=== PATIENT | female | born 2000 | race Caucasian/White ===

== ENCOUNTER 2022-09-08 15:35 | Emergency (ER) | payer BC ==
[~2022-09-08] VITALS: Ht 157.5 cm; Wt 64.0 kg
[2022-09-08 16:04] VITALS: BP 115/87
[2022-09-08 17:11] LABS: BILIRUBIN,URINE NEGATIVE (NEGATIVE); BLOOD, URINE 2+ (NEGATIVE); COLOR,URINE YELLOW (YELLOW); LEUKOCYTE ESTERASE ,URINE 2+ (NEGATIVE); NITRITE, URINE NEGATIVE (NEGATIVE); UGLUCOSE NEGATIVE (NEGATIVE)
[2022-09-08 17:12] LABS: APPEARANCE,URINE HAZY (CLEAR)
[2022-09-08 17:38] LABS: RBC,URINE 11-20 (MOD) /HPF (0-5); WBC,URINE 0-5 /HPF (0-5)
[2022-09-08] MEDS ORDERED: IBUP-2213 PO (18:22)
[2022-09-08] MEDS ORDERED: CEPH-588 PO (18:22)
[2022-09-08] MEDS ORDERED: ONDA-188 PO (18:22)
[2022-09-08] MEDS ORDERED: PYR100 PO (18:22)
--- NOTE | 2022-09-08 18:44 | NUR ---
Patient left without D/C papers.
[2022-09-08 18:45] VITALS: BP 115/87
== END 2022-09-08 18:45 | disposition home or self-care (01) ==
LOC: MED 15:35
DX: N39.0 Urinary tract infection, site not specified (principal); R03.0 Elevated blood-pressure reading, without diagnosis of hypertension; Z79.899 Other long term (current) drug therapy; Z79.1 Long term (current) use of non-steroidal anti-inflammatories (NSAID); Z79.2 Long term (current) use of antibiotics
CPT/HCPCS: 81001; 81025; 87086; 99283

== ENCOUNTER 2023-01-27 09:18 | Emergency (ER) | payer BC ==
[~2023-01-27] VITALS: Ht 157.5 cm; Wt 59.9 kg
[~2023-01-27 09:18] MED LIST: CEPH-588 PO; IBUP-2213 PO; ONDA-188 PO; PYR100 PO
[2023-01-27 09:19] VITALS: BP 101/73; PULSE 78; RESP 16; TEMP 98; O2SAT 99
[2023-01-27] MEDS ORDERED: CEPH-588 PO (09:54)
[2023-01-27] MEDS ORDERED: ACET-10509 PO (09:54)
[2023-01-27] MEDS ORDERED: ACETAMINOPHEN EXTRA STRENGTH 500 MG TAB PO ONE (09:55)
== END 2023-01-27 10:04 | disposition home or self-care (01) ==
LOC: MED 09:18
DX: K08.89 Other specified disorders of teeth and supporting structures (principal)
CPT/HCPCS: 99283

== ENCOUNTER 2023-03-07 20:15 | Emergency (ER) | payer BC ==
[~2023-03-07] VITALS: Ht 157.5 cm; Wt 59.9 kg
[~2023-03-07 20:15] MED LIST changes: +ACET-10509 PO
[2023-03-07 20:31] VITALS: BP 103/71; PULSE 79; RESP 20; TEMP 98; O2SAT 98
[2023-03-07 21:16] LABS: BILIRUBIN,URINE NEGATIVE (NEGATIVE); BLOOD, URINE NEGATIVE (NEGATIVE); LEUKOCYTE ESTERASE ,URINE 2+ (NEGATIVE); NITRITE, URINE POSITIVE (NEGATIVE); PROTEIN,URINE TRACE (NEGATIVE); UGLUCOSE TRACE (NEGATIVE)
[2023-03-07 21:40] LABS: APPEARANCE,URINE HAZY (CLEAR); BACTERIA,URINE 2+ /HPF (None Seen); COLOR,URINE ORANGE (YELLOW); RBC,URINE NONE SEEN /HPF (0-5); SQUAMOUS EPITHELIAL CELL,UR 4-10 (MOD) /LPF (0-3 (FEW)); WBC,URINE TOO MANY TO COUNT /HPF (0-5)
[2023-03-07] MEDS ORDERED: PYR100 PO (21:45)
[2023-03-07] MEDS ORDERED: CEPH-588 PO (21:45)
[2023-03-07] MEDS: cephALEXin 500 MG CAP PO ONE (22:08)
[2023-03-07 22:12] VITALS: BP 103/65; PULSE 73; RESP 20; TEMP 98.1; O2SAT 99
== END 2023-03-07 22:13 | disposition home or self-care (01) ==
LOC: MED 20:15
DX: N30.00 Acute cystitis without hematuria (principal); Z79.899 Other long term (current) drug therapy
CPT/HCPCS: 81001; 81025; 87086; 99283